=== PATIENT | male | born 1935 | race Caucasian/White ===

== ENCOUNTER 2019-05-17 02:29 | Emergency (ER) | payer MEDICARE, OTHER ==
[~2019-05-17] VITALS: Ht 182.9 cm; Wt 75.0 kg
[~2019-05-17 02:29] MED LIST: FURO-150 PO; HALO0.5T PO; POTA20TA19 PO
--- NOTE | 2019-05-17 02:43 | NUR ---
shortly after moving pt from EMS [facility] to ER [facility], pt became incontinent of urine. linen changed and pt placed in brief. will attempt to get UA from straight cath.
[2019-05-17 03:25] LABS: CLARITY,URINE CLOUDY (Clear); GLUCOSE, URINE NEGATIVE (Neg); KETONES,URINE NEGATIVE (Neg); LEUKOCYTE ESTERASE ,URINE LARGE (Neg); NITRITES, URINE NEGATIVE (Neg); OCCULT BLOOD,URINE LARGE (Neg); PROTEIN,URINE 100 mg/dl (Neg); UROBILINOGEN,URINE 0.2 E.U/dL (0.2-1.0)
[2019-05-17 03:28] LABS: COLOR,URINE Pink (Yellow); UA COLLECTION TYPE NON-SPECIFIED
[2019-05-17 03:30] LABS: RBC,URINE TNTC /HPF (0-2); WBC,URINE TNTC /HPF (0-4)
[2019-05-17 03:37] LABS: BACTERIA,URINE 1+ /HPF (Neg); SQUAMOUS EPITHELIAL CELL,UR MODERATE /LPF (FEW)
[2019-05-17] MEDS ORDERED: CEPH500C5 PO (03:44)
[2019-05-17] MEDS ORDERED: CefTRIAXone 1000mg IM Kit (w/lidocaine diluent) IM ONE (03:45)
[2019-05-17 04:01] VITALS: BP 122/74
== END 2019-05-17 04:05 | disposition home or self-care (01) ==
LOC: ER 02:30
DX: N39.0 Urinary tract infection, site not specified (principal); F03.90 Unspecified dementia, unspecified severity, without behavioral disturbance, psychotic disturbance, mood disturbance, and anxiety; C95.90 Leukemia, unspecified not having achieved remission; Z79.2 Long term (current) use of antibiotics; Z79.899 Other long term (current) drug therapy
CPT/HCPCS: 81001; 87077; 87088; 96372; 99284; J0696; P9612